=== PATIENT | female | born 2000 | race African-American/Black ===

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

== ENCOUNTER → 2022-11-18 | Outpatient (CLI) | payer OTHER | LOC: M CARPUL 10:11 | PROVIDERS: ATTEND Family Medicine | DX: J45.909 Unspecified asthma, uncomplicated (principal) ==